=== PATIENT | female | born 1980 | race Caucasian/White ===

== ENCOUNTER 2018-01-31 10:40 | Outpatient (CLI) | payer BC ==
[2018-01-31 11:33] LABS: eGFR (African) > 60; eGFR (Non-African) > 60
== END 2018-01-31 10:42 ==
LOC: LAB 10:40
PROVIDERS: ATTEND Physician Assistant
DX: Z00.00 Encounter for general adult medical examination without abnormal findings (principal); Z13.6 Encounter for screening for cardiovascular disorders
CPT/HCPCS: 36415; 80053; 80061

== ENCOUNTER 2018-04-22 09:33 | Emergency (ER) | payer BC ==
[2018-04-22] MEDS ORDERED: KETOROLAC TROMETHAMINE 60 MG/2 ML VIAL ONE (09:59)
--- NOTE | 2018-04-25 19:15 | Diagnostic Imaging Report ---
[facility] [address] [facility].[address] [address] Report Submission Date: Apr 24, 2018 5:35:05 PM CDT Patient Study Name: KEENA RAMOS Date: Apr 22, 2018 10:36:00 AM CDT Modality Type: DX Gender: F Description: LOWER EXTREMITY : 80 Institution: [facility] Physician: DARSHAN REYES Examination: Plain film left knee History: KNEE PAIN (Hx) Findings: 3 views of the left knee demonstrates normal cortical margins. No fracture. No dislocation. No joint effusion. No soft tissue irregularity. Impression: No acute osseous abnormality Electronically signed on Apr 24, 2018 5:35:05 PM CDT by: Abdiel JO
== END 2018-04-22 11:10 ==
LOC: ED 09:33
DX: M25.562 Pain in left knee (principal)
CPT/HCPCS: 73562; J1885; 96372; 99283